=== PATIENT | male | born 1995 | race Asian ===

== ENCOUNTER 2019-03-25 16:38 | Inpatient (IN) ==
--- NOTE | 2019-03-25 17:09 | Emergency Department Note ---
Entered by Giuliana Lock acting as a scribe for History of Present Illness General Chief complaint: Mental Health Evaluation Stated complaint: 302 Time Seen by Provider: 03/25/19 16:44 Source: patient History of Present Illness Provider complaint: Worsening Suicidal Ideation Onset (ago): day(s) 1 Location: head Maximum Pain Intensity: 0 Relieved By: + none Exacerbated By: + other (Stress) Associated symptoms: + denies other symptoms (HI), + loss of appetite and + other (Difficulty sleeping ) The patient is a 23 year old male who presents to the Emergency Room with complaints of worsening suicidal ideation with a plan to jump out of a window that began yesterday. The patient reports that he transferred here in fall and his grandfather had heart surgery which the patient states made him "very frustrated and could not focus." Then during spring his grandfather was diagnosed with stomach cancer and he states he became frustrated again. The patient states that 1 week ago he asked his family for more money to do another semester at [employer] and they said their business was not doing well and they could not provide him with the money he needed. The patient reports that he then decided he could not take the final and talked to his professor who told him "if you do not take it you will fail the class" and the patient walked out and went to [facility]. The patient states that he went back to his professor who told him he had failed and could not take the final. The patient states his symptoms are exacerbated by the stress he has been experiencing and not relieved by anything specific. The patient reports experiencing difficulty sleeping and loss of appetite. The patient denies any homicidal ideation but does express anger towards his professor. The patient denies any history of mental illness or suicidal thoughts. The patient states that he feels calmer now and does not want to kill himself. Home Medications Home Medications Medication Instructions Recorded Confirmed Type No Known Home Medications 03/25/19 03/25/19 History Allergies Allergy/AdvReac Type Severity Reaction Status Date / Time No Known Allergies Allergy Unverified 03/25/19 17:10 Past Med/Surg History Medical History No pertinent past medical history Family History Other Heart disease Stomach cancer Social History Feels Safe at Home: Yes Smoking Status: Current every day smoker Tobacco Type: cigarettes ; Review of Systems See HPI for pertinent positives & negatives. and A total of 10 systems reviewed and were otherwise negative Physical Exam Vital Signs Vital Signs - 24 hr 03/25/19 16:39 03/25/19 21:33 03/25/19 22:24 Temperature 36.5 C Temperature Source Oral Pulse Rate 82 80 Pulse Rate [Apical] 60 Respiratory Rate 16 16 16 Respiratory Depth Normal Blood Pressure 163/93 H Blood Pressure [Left Arm] 93/57 L Blood Pressure Mean 116 Blood Pressure Mean [Left Arm] 69 Pulse Oximetry 98 100 100 Oxygen Delivery Method Room Air Room Air Room Air Sepsis Recent Fever Within 48 Hours No Sepsis New/Unexplained Change in Mental Status No Sepsis Action Taken by Nursing No Action Required GENERAL: alert, well nourished, no distress, non-toxic. Sitting up in bed. EYE EXAM: normal conjunctiva OROPHARYNX: no exudate, no erythema, lips, buccal mucosa, and tongue normal and mucous membranes are moist NECK: supple, no nuchal rigidity, no adenopathy, non-tender LUNGS: Clear to auscultation. Normal chest wall mechanics HEART: no murmurs, S1 normal and S2 normal ABDOMEN: abdomen soft, non-tender, normo-active bowel sounds, no masses, no rebound or guarding. BACK: Back is symmetrical on inspection and there is no deformity, no midline tenderness, no CVA tenderness. SKIN: no rashes and no bruising UPPER EXTREMITIES: upper extremities are grossly normal. LOWER EXTREMITIES: No pitting edema. NEURO EXAM: Normal sensorium, cranial nerves II-XII grossly intact, normal speech, no gross weakness of arms, no gross weakness of legs. PSYCH: Admits to with a plan to jump out of a window. Course Course ED COURSE: Vital signs were reviewed and showed the patient is situationally hypertensive. The patients medical record was reviewed The above diagnostic studies were performed and reviewed. ED treatments and interventions as stated above. 1649: The patient was evaluated in room A08. A complete history and physical examination was performed. 2025: I reevaluated the patient and he does not want to stay. 2044: [employer] issued a warrant for the patient. 2216: Upon reevaluation, the patient is resting comfortably. I discussed my findings with the patient and he understands and agrees with the treatment plan. The patient was admitted to [address] [place] [address]. Based on the patients age, coexisting illnesses, exam and lab findings the decision to treat as an inpatient was made. The patient remained stable while under my care. The patient will be evaluated for further management. Administered Medications Nicotine Polacrilex (Nicorette 2mg) 1 piece MT PRN PRN PRN Reason: Agitation Stop: 04/24/19 20:24 Last Admin: 03/25/19 20:46 Dose: 1 piece Documented by: [id number] Medical Decision Making Differential Diagnosis Differential diagnosis: Etiologies such as psychiatric disorder, infection, hypoglycemia, electrolyte abnormalities, cardiac sources, intracerebral event, toxicological process, neurologic disorder, as well as others were entertained. Medical Records Attestation: I reviewed the patient's medical records. Home Medications Current Medication List: was personally reviewed by me Laboratory Data Attestation: I reviewed the patient's lab results. Result diagrams: 03/25/19 17:13 03/25/19 17:13 Lab Results 03/25/19 03/25/19 03/25/19 Range/Units 17:06 17:06 17:13 WBC 12.37 H (4.8-10.8) K/uL RBC 4.98 (4.7-6.1) M/uL Hgb 16.2 (14.0-18.0) g/dL Hct 46.2 (42-52) % MCV 92.8 (80-100) fL MCH 32.5 (25-34) pg MCHC 35.1 (32-36) g/dL RDW Std Deviation 41.7 (36.4-46.3) fL RDW Coeff of Caty 12.4 (11.5-14.5) % Plt Count 236 (130-400) K/uL MPV 10.4 (7.4-10.4) fL Immature Gran % (Auto) 0.2 % Neut % (Auto) 84.0 % Lymph % (Auto) 10.9 % [place] % (Auto) 4.5 % Eos % (Auto) 0.2 % Baso % (Auto) 0.2 % Immature Gran # (Auto) 0.02 (0.00-0.02) K/uL Neut # (Auto) 10.39 H (1.4-6.5) K/uL Lymph # (Auto) 1.35 (1.2-3.4) K/uL [place] # (Auto) 0.56 (0.11-0.59) K/uL Eos # (Auto) 0.03 (0-0.5) K/uL Baso # (Auto) 0.02 (0-0.2) K/uL Sodium (136-145) mmol/L Potassium (3.5-5.1) mmol/L Chloride (98-107) mmol/L Carbon Dioxide (21-32) mmol/L Anion Gap (3-11) BUN (7-18) mg/dl Creatinine (0.6-1.4) mg/dl Est Cr Clr Drug Dosing ml/min Est GFR ( Amer) Est GFR (Non-Af Amer) BUN/Creatinine Ratio (10-20) Glucose (70-99) mg/dl Calcium (8.5-10.1) mg/dl Total Bilirubin (0.2-1) mg/dl AST (15-37) U/L ALT (12-78) U/L Alkaline Phosphatase (45-117) U/L Total Protein (6.4-8.2) gm/dl Albumin (3.4-5.0) gm/dl Globulin (2.5-4.0) gm/dl Albumin/Globulin Ratio (0.9-2) TSH (0.300-4.500) uIu/ml Urine Color Yellow Urine Appearance Clear (Clear) Urine pH 7.5 (4.5-7.5) Ur Specific [place] 1.007 (1.000-1.030) Urine Protein Negative (Negative) Urine Glucose (UA) Negative (Negative) Urine Ketones Negative (Negative) Urine Blood Negative (Negative) Urine Nitrite Negative (Negative) Urine Bilirubin Negative (Negative) Urine Urobilinogen Negative (Negative) Ur Leukocyte Esterase Negative (Negative) Salicylates (2.8-20) mg/dl Urine Opiates Screen Neg (Neg) Ur Methadone, Qual Neg (Neg) Acetaminophen (10-30) ug/ml Urine Barbiturates Neg (Neg) Ur Phencyclidine (PCP) Neg (Neg) U Amphetamin/Meth Scrn Neg (Neg) MDMA (Ecstasy) Screen Neg (Neg) U Benzodiazepines Scrn Neg (Neg) Ur Cocaine Metabolite Neg (Neg) U Marijuana (THC) Screen Neg (Neg) Ethyl Alcohol mg/dL (0-3) mg/dl 03/25/19 03/25/19 03/25/19 Range/Units 17:13 17:13 17:13 WBC (4.8-10.8) K/uL RBC (4.7-6.1) M/uL Hgb (14.0-18.0) g/dL Hct (42-52) % MCV (80-100) fL MCH (25-34) pg MCHC (32-36) g/dL RDW Std Deviation (36.4-46.3) fL RDW Coeff of Caty (11.5-14.5) % Plt Count (130-400) K/uL MPV (7.4-10.4) fL Immature Gran % (Auto) % Neut % (Auto) % Lymph % (Auto) % [place] % (Auto) % Eos % (Auto) % Baso % (Auto) % Immature Gran # (Auto) (0.00-0.02) K/uL Neut # (Auto) (1.4-6.5) K/uL Lymph # (Auto) (1.2-3.4) K/uL [place] # (Auto) (0.11-0.59) K/uL Eos # (Auto) (0-0.5) K/uL Baso # (Auto) (0-0.2) K/uL Sodium 139 (136-145) mmol/L Potassium 3.8 (3.5-5.1) mmol/L Chloride 109 H (98-107) mmol/L Carbon Dioxide 24 (21-32) mmol/L Anion Gap 6.0 (3-11) BUN 12 (7-18) mg/dl Creatinine 1.17 (0.6-1.4) mg/dl Est Cr Clr Drug Dosing 114.2 ml/min Est GFR ( Amer) 101.2 Est GFR (Non-Af Amer) 87.4 BUN/Creatinine Ratio 10.0 (10-20) Glucose 105 H (70-99) mg/dl Calcium 9.5 (8.5-10.1) mg/dl Total Bilirubin 0.5 (0.2-1) mg/dl AST 17 (15-37) U/L ALT 63 (12-78) U/L Alkaline Phosphatase 121 H (45-117) U/L Total Protein 7.8 (6.4-8.2) gm/dl Albumin 4.3 (3.4-5.0) gm/dl Globulin 3.5 (2.5-4.0) gm/dl Albumin/Globulin Ratio 1.2 (0.9-2) TSH 1.110 (0.300-4.500) uIu/ml Urine Color Urine Appearance (Clear) Urine pH (4.5-7.5) Ur Specific [place] (1.000-1.030) Urine Protein (Negative) Urine Glucose (UA) (Negative) Urine Ketones (Negative) Urine Blood (Negative) Urine Nitrite (Negative) Urine Bilirubin (Negative) Urine Urobilinogen (Negative) Ur Leukocyte Esterase (Negative) Salicylates < 1.7 L (2.8-20) mg/dl Urine Opiates Screen (Neg) Ur Methadone, Qual (Neg) Acetaminophen > 2 L (10-30) ug/ml Urine Barbiturates (Neg) Ur Phencyclidine (PCP) (Neg) U Amphetamin/Meth Scrn (Neg) MDMA (Ecstasy) Screen (Neg) U Benzodiazepines Scrn (Neg) Ur Cocaine Metabolite (Neg) U Marijuana (THC) Screen (Neg) Ethyl Alcohol mg/dL < 3.0 (0-3) mg/dl Blood Pressure Blood Pressure Findings: Elevated blood pressure Blood Pressure Disposition: elevated BP felt to be situational MDM Narrative Patient is a 23-year-old male who presents the ER referred in by caps for suicidal ideations with a plan to jump out of a window. He was stressed out as he was informed that his parents may not be able to pay for tuition and he had trouble thinking and was unable to take a final. He did have some homicidal ideations in regards to his professor per report. Patient notes today is much more calmer and has no complaints at this time. Labs were obtained and showed a mild leukocytosis of 12,000. No significant anemia. BMP along with LFTs bilirubin TSH was unremarkable. UA was negative. Tox was negative. Alcohol was negative. Patient was evaluated by her psychiatric care director rn. Patient declined admission 1 to go home. Following this a 302 petition was performed and was upheld by the [facility]. Patient was admitted on a 302 for suicidal ideations along with some intermittent homicidal ideations. Observation: Indication: Mental Health Evaluation Patient, with heart disease and cancer Family History, was first seen at 1650 hrs and the observation began at 1700 hrs and was necessary in order to determine psychiatric clearance and avoid unnecessary medical admission. Upon re-evaluation, 6 hrs of observation revealed that the patient should be admitted to [address] [place] [address]. Disposition date and time 03/25/2019 at 2216. Impression & Plan Suicidal ideation, Mood disorder Discharge Plan Visit Data Chief Complaint: Mental Health Evaluation Stated Complaint: 302 ED Provider: Reno Vences Discharge Problem: Suicidal ideation, Mood disorder Discharge Instructions Interventions: ED Discharge Assessment Last Done: 03/25/19 22:24 The scribe's documentation has been prepared under my direction and personally reviewed by me in its entirety. I confirm that the note above accurately reflects all work, treatment, procedures, and medical decision making performed by me.
[2019-03-25 17:26] LABS: Appearance Urine Clear (Clear); Bilirubin Urine Negative (Negative); Blood Urine Negative (Negative); Color Urine Yellow; Glucose Urine UA Negative (Negative); Ketones Urine Negative (Negative); Leukocyte Esterase Urine Negative (Negative); Nitrite Urine Negative (Negative); Protein Urine Negative (Negative); Specific Gravity Urine 1.007 (1.000-1.030); Urobilinogen Urine Negative (Negative); pH Urine 7.5 (4.5-7.5)
[2019-03-25 17:32] LABS: Basophils # (auto) 0.02 K/uL (0-0.2); Basophils % (auto) 0.2 %; Eosinophils # (auto) 0.03 K/uL (0-0.5); Eosinophils % (auto) 0.2 %; Hematocrit (blood only) 46.2 % (42-52); Hemoglobin 16.2 g/dL (14.0-18.0); Immature Granulocytes # (auto) 0.02 K/uL (0.00-0.02); Immature Granulocytes % (auto) 0.2 %; Lymphocytes # (auto) 1.35 K/uL (1.2-3.4); Lymphocytes % (auto) 10.9 %; Mean Corpuscular Hemoglobin 32.5 pg (25-34); Mean Corpuscular Hgb Conc 35.1 g/dL (32-36); Mean Corpuscular Volume 92.8 fL (80-100); Mean Platelet Volume 10.4 fL (7.4-10.4); Monocytes # (auto) 0.56 K/uL (0.11-0.59); Monocytes % (auto) 4.5 %; Neutrophils # (auto) 10.39 K/uL (1.4-6.5); Platelet Count 236 K/uL (130-400); RDW Coefficient of Variation 12.4 % (11.5-14.5); RDW Standard Deviation 41.7 fL (36.4-46.3); Red Blood Count 4.98 M/uL (4.7-6.1); White Blood Count 12.37 K/uL (4.8-10.8)
[2019-03-25 17:48] LABS: Amphetamines+Metham, Urine Neg (Neg); Barbiturates, Urine Neg (Neg); Benzodiazepine, Urine Neg (Neg); Cocaine, Urine Neg (Neg); MDMA (Ecstacy), Urine Neg (Neg); Methadone, Urine Neg (Neg); Opiate, Urine Neg (Neg); Phencyclidine, Urine Neg (Neg)
[2019-03-25 17:52] LABS: Albumin Level 4.3 gm/dl (3.4-5.0); Calcium 9.5 mg/dl (8.5-10.1); Creatinine Clr Calc Pharmacy 114.2 ml/min; Est GFR (African American) 101.2; Est GFR (Non-African American) 87.4; Potassium 3.8 mmol/L (3.5-5.1)
[2019-03-25 18:03] LABS: Acetaminophen > 2 ug/ml (10-30); Albumin Globulin Ratio 1.2 (0.9-2); Bilirubin,Total 0.5 mg/dl (0.2-1); Globulin 3.5 gm/dl (2.5-4.0); Thyroid Stimulating Hormone 1.11 uIu/ml (0.300-4.500); Total Protein 7.8 gm/dl (6.4-8.2)
[2019-03-25 18:04] LABS: Salicylate < 1.7 mg/dl (2.8-20)
[2019-03-25] MEDS ORDERED: NICOTINE POLACRILEX 2 MG GUM MT PRN (20:25)
[2019-03-25] MEDS ORDERED: SODIUM CHLORIDE 0.65% NA SOLN 45 ML (OCEAN) PRN (22:53)
[2019-03-25] MEDS ORDERED: MAGNESIUM HYDROXIDE SUSP 30 ML UDC PO PRN (22:53)
[2019-03-25] MEDS ORDERED: ALUMINUM/MAGNESIUM SUSP 30 ML UDC PO PRN (22:53)
[2019-03-25] MEDS ORDERED: BISMUTH SUBSALICYLATE PER ML OMNICELL CHARGE PO PRN (22:53)
[2019-03-25] MEDS ORDERED: ACETAMINOPHEN 325 MG TAB PO PRN (22:53)
--- NOTE | 2019-03-26 08:39 | History & Physical ---
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 He has been struggling academically and is already on academic probation, and will need to coordinate with the school regarding his options. He denies any psychiatric history, and mood and anxiety symptoms occurred over the past 5 days in the context of family, financial, and academic stressors as detailed above. He is thinking of going to [place] to be with parents after discharge and is not sure if he will be returning to [employer]. Inpatient treatment is medically necessary due to the severity of presenting symptoms and risk for suicide if discharged prematurely without medication of risk factors. (1) Suicidal ideation: 03/26 -continue involuntary hospitalization. -Every 15 minute checks for safety. -Process stressors, encourage group attendance and participation, and recommend family meeting with parents. -Patient reported thoughts to harm a professor to [facility] personnel, but has denied any thoughts or intent to harm anyone here, stating he was just frustrated. He would like assistance to contact the University and explore his options to complete the semester. Present on Admission?: Yes (2) Adjustment disorder: 03/26 -patient denies problems with depressive or anxiety symptoms until the past 5 days, when he experienced problems in the context of learning his grandfather has new health problems, his parents are having financial problems and may not be able to continue to pay for his education, and missing finals causing further academic problems. He had suicidal thoughts yesterday, but states they have since resolved, and he is feeling more hopeful that he will be able to find solutions to manage his stressors. I do not believe medications are indicated at this time, but we will continue to monitor for mood and anxiety symptoms and can consider medications if they do not resolve. -Work on healthy coping skills and discharge safety plan. Adjustment disorder type: with mixed anxiety and depressed mood Qualified Code(s): F43.23 - Adjustment disorder with mixed anxiety and depressed mood Present on Admission?: Yes (3) Nicotine abuse: 03/26 -smoking cessation education offered, but patient refused. Continue with motivational interviewing/psychoeducation. -Nicotine replacement with 14 mg patch. -Refer for outpatient follow-up with psychiatrist or PCP. Present on Admission?: Yes Inventory Assets Strengths: Supportive family Risk Factors Assessment Male: Yes : No Do You Have Access To A Gun?: No Health Problems: No Mental Health Diagnoses: Yes Substance Use Disorders: No Previous Attempt: No Family History of Suicide: No Previous Psychiatric Hospitalization: No Hopelessness: Yes Smoker: Yes Protective Factors Assessment : No Responsible for Young Children: No Employed: No Stable Relationships: Yes Supportive Family: Yes Good Rapport with Provider: No Psychiatric History Identifying Data LALO PENALOZA is a 23-year-old M [employer] student from [place] who denies any psychiatric history and was admitted on 03/25/19 22:31 on a 302 involuntary commitment for anxiety, not eating or sleeping, suicidal thoughts to jump out a window and thoughts to harm a professor. Chief Complaint "Where do you want me to start?" History of Present Illness Patient presented to the ER with police after being seen at [facility] for reports of not eating or sleeping, self injury (scratching his hand and banging his head), suicidal thoughts to jump out of a window, and thoughts to harm a professor. He reported feeling out of control. Triggered by missing a final and professor telling him he could not retake it, financial problems (when he asked them to pay for an additional semester, parents said they may not be able to continue to pay for college), and grandfather in [place] with stomach cancer. He reported smoking cigarettes "constantly," and denied any h/o mental health treatment or medications. He reported multiple stressors over the past 2 years since transferring to [employer] in the fall 2016, including his grandfather (who he is very close to) suffering from multiple medical problems, and difficulty in school. In the ER, the recommendation was for inpatient psychiatric treatment, but the patient declined and said he wanted to go home, so was placed on an involuntary commitment. On my assessment, the patient reports he had a final 2 days ago, and the day before that his parents told him they might not be able to pay for his next semester of school "and I was just so frustrated." He talked to his professor and told him he didn't want to take his final because of his mental state, and that he wanted to go see a doctor. He went to [facility] on . and missed his final, and when he returned to his professor's office, he told him that he had missed the final and couldn't take it. He was very upset by this, and felt overwhelmed, although he was told he needed to talk with someone else through the University, but he didn't contact them because he was so frustrated. He states he's missed 3 different finals now, so is having problems in multiple classes, and does not think he will pass. States he was already on academic probation, and had to get at least a 2.0 GPA this semester to stay in school. He returned to [facility] Sat. 03/25 and reported the above symptoms. He reports mood was "fine" until 5 days ago when found out about financial problems and grandfather's health issues. Sleep has been impaired, taking hours to fall asleep, appetite has been decreased but denies weight loss, and concentration is impaired. Denies problems with energy and anhedonia, enjoys time with friends, playing poker and basketball. Denies anxiety prior to this week, but for the past 4 days has been worried about school and his grandfather's health. Denies previous mood episodes, h/o psychosis, daniel, OCD or PTSD. Denies any history of SI or HI. Denies current thoughts of harming anyone else including his professors, states he's like to contact the school about his academic options. He states he feels "stupid" about the suicidal thoughts he had, stating he would not want to hurt his parents and would like help dealing with his stressors, specifically his professor/academics. He is thinking about returning to [place] to be with family and figure out if he'll return to school or not. Past Psychiatric History Previous Psych History: Denies Current Psychiatric Diagnosis: None Outpatient Services: None Previous Psych Admissions: Denies Do You Have Access To A Gun?: No History of Previous Suicide Attempt: No Past Medication Trials: Denies Allergies Allergy/AdvReac Type Severity Reaction Status Date / Time No Known Allergies Allergy Unverified 03/25/19 17:10 Home Medications Home Medications Medication Instructions Recorded Confirmed Type No Known Home Medications 03/25/19 03/25/19 History Family History Family History of: None Alcohol History Hx of Alcohol Use Over the Past 12 Months: No AUDIT Total Score: 0 Smoking Use Have You Smoked or Used Tobacco Products in the Last 30 Days: Yes tobacco type: cigarettes Smoking Status: Current every day smoker Smoking packs per day: 0.5 Substance History Hx of Prescription Med Misuse Over the Past 12 Months: No Hx of Over the Counter Med Misuse Over the Past 12 Months: No Hx of Inhalent Misuse Over the Past 12 Months: No Hx of Organic Substance Use Over the Past 12 Months: No Hx of Illegal Substances/Street Drug Use Over Past 12 Months: No Problems as a Result of Past Substance Use: None Identified Personal History Living Arrangements: Apartment (with roommates off campus) Living Arrangements Comments: [place] to attend [employer]. From [facility], parents still there. Only child. 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 Started school at the [employer], was going to play basketball, "but it was too hard," so studied abroad in [place], and then transferred to [employer], as one of his HS teammates goes here. Majoring in liberal arts, but wants to change to math. On academic probation, has to get a 2.0 this semester to stay in school. Employment Status: Student Marital Status: Single Number Of Children: 0 Beliefs That Will Affect Care: None Current Legal Problems: No Hx Traumatic Life Events: No Patient History Medical History (Updated 03/26/19 @ 11:08 by Lizet Roibson MD) Adjustment disorder Nicotine abuse No pertinent past medical history Family History Other Heart disease Stomach cancer Social History Communication Ability: Effective Food Service Employee Required: No Beliefs That Will Affect Care: None Feels Safe at Home: Yes Smoking Status: Current every day smoker Tobacco Type: cigarettes ; Review of Systems Review of Systems: All systems reviewed & are unremarkable except as noted in HPI & below Physical Exam Psychiatric: Orientation: alert, oriented x 3 and cooperative Apperance: appropriately dressed, appropriately groomed and appeared stated age Eye Contact: good eye contact Motor Behavior: steady gait and station and no abnormal motor movements Speech: normal rate/rhythm/volume of speech Affect: + anxious affect and mood congruent with affect Mood: + depressed mood and + anxious mood Thought Process: goal directed thought process Thought Content: + hopelessness and + guilt Suicidal Thoughts: denies suicidal thoughts Homicidal Thoughts: denies homicidal thoughts Hallucinations: no auditory hallucinations and no visual hallucinations Cognition: recent memory grossly intact, attention grossly intact and language grossly intact Estimated Intelligence: consistent with education level Insight: + fair insight Judgement: + fair judgement Vital Signs (Past 24 Hours): Last Vital Signs Temp 36.3 C L 03/26/19 06:37 Pulse 56 L 03/26/19 06:40 Resp 16 03/26/19 06:37 BP 119/83 03/26/19 06:40 Pulse Ox 100 03/25/19 22:24 Exam Statement: A physical exam was performed in the ER prior to admission to the unit by Dr. Reno Vences. I accept that physical as correct/medical clearance for the inpatient physical exam. Results & Data Laboratory Results Laboratory Results - last 24 hr 03/25/19 03/25/19 03/25/19 17:06 17:06 17:13 WBC 12.37 H RBC 4.98 Hgb 16.2 Hct 46.2 MCV 92.8 MCH 32.5 MCHC 35.1 RDW Std Deviation 41.7 RDW Coeff of Caty 12.4 Plt Count 236 MPV 10.4 Immature Gran % (Auto) 0.2 Neut % (Auto) 84.0 Lymph % (Auto) 10.9 [place] % (Auto) 4.5 Eos % (Auto) 0.2 Baso % (Auto) 0.2 Immature Gran # (Auto) 0.02 Neut # (Auto) 10.39 H Lymph # (Auto) 1.35 [place] # (Auto) 0.56 Eos # (Auto) 0.03 Baso # (Auto) 0.02 Sodium Potassium Chloride Carbon Dioxide Anion Gap BUN Creatinine Est Cr Clr Drug Dosing Est GFR ( Amer) Est GFR (Non-Af Amer) BUN/Creatinine Ratio Glucose Calcium Total Bilirubin AST ALT Alkaline Phosphatase Total Protein Albumin Globulin Albumin/Globulin Ratio TSH Urine Color Yellow Urine Appearance Clear Urine pH 7.5 Ur Specific Wray 1.007 Urine Protein Negative Urine Glucose (UA) Negative Urine Ketones Negative Urine Blood Negative Urine Nitrite Negative Urine Bilirubin Negative Urine Urobilinogen Negative Ur Leukocyte Esterase Negative Salicylates Urine Opiates Screen Neg Ur Methadone, Qual Neg Acetaminophen Urine Barbiturates Neg Ur Phencyclidine (PCP) Neg U Amphetamin/Meth Scrn Neg MDMA (Ecstasy) Screen Neg U Benzodiazepines Scrn Neg Ur Cocaine Metabolite Neg U Marijuana (THC) Screen Neg Ethyl Alcohol mg/dL 03/25/19 03/25/19 03/25/19 17:13 17:13 17:13 WBC RBC Hgb Hct MCV MCH MCHC RDW Std Deviation RDW Coeff of Caty Plt Count MPV Immature Gran % (Auto) Neut % (Auto) Lymph % (Auto) [place] % (Auto) Eos % (Auto) Baso % (Auto) Immature Gran # (Auto) Neut # (Auto) Lymph # (Auto) [place] # (Auto) Eos # (Auto) Baso # (Auto) Sodium 139 Potassium 3.8 Chloride 109 H Carbon Dioxide 24 Anion Gap 6.0 BUN 12 Creatinine 1.17 Est Cr Clr Drug Dosing 114.2 Est GFR ( Amer) 101.2 Est GFR (Non-Af Amer) 87.4 BUN/Creatinine Ratio 10.0 Glucose 105 H Calcium 9.5 Total Bilirubin 0.5 AST 17 ALT 63 Alkaline Phosphatase 121 H Total Protein 7.8 Albumin 4.3 Globulin 3.5 Albumin/Globulin Ratio 1.2 TSH 1.110 Urine Color Urine Appearance Urine pH Ur Specific [place]ray Urine Protein Urine Glucose (UA) Urine Ketones Urine Blood Urine Nitrite Urine Bilirubin Urine Urobilinogen Ur Leukocyte Esterase Salicylates < 1.7 L Urine Opiates Screen Ur Methadone, Qual Acetaminophen > 2 L Urine Barbiturates Ur Phencyclidine (PCP) U Amphetamin/Meth Scrn MDMA (Ecstasy) Screen U Benzodiazepines Scrn Ur Cocaine Metabolite U Marijuana (THC) Screen Ethyl Alcohol mg/dL < 3.0 Current Inpatient Medications Current Inpatient Medications: Current Inpatient Medications Acetaminophen (Tylenol) 650 mg PO Q4H PRN PRN Reason: Headache or Minor Fever Stop: 04/24/19 22:52 Al Hydrox/Mg Hydrox/Simethicone (Maalox) 30 ml PO Q4H PRN PRN Reason: GI Upset Stop: 04/24/19 22:52 Bismuth Subsalicylate (Kaopectate) 15 ml PO PRN PRN PRN Reason: Loose Stool Stop: 04/24/19 22:52 Hydroxyzine HCl (Vistaril) 50 mg PO HSZ PRN PRN Reason: Insomnia Stop: 04/24/19 22:52 Hydroxyzine HCl (Vistaril) 25 mg PO Q4H PRN PRN Reason: Anxiety Stop: 04/24/19 22:52 Magnesium Hydroxide (Milk Of Magnesia) 30 ml PO DAILY PRN PRN Reason: Constipation Stop: 04/24/19 22:52 Miscellaneous (Remove Nicoderm Patch) 1 ea N/A DAILY@[id number] [facility] Stop: 04/25/19 08:58 Nicotine (Nicoderm Cq) 14 mg TD QAM [facility] Stop: 04/25/19 08:59 Sodium Chloride ([place] Nasal) 1 - 2 sprays NA PRN PRN PRN Reason: Nasal Dryness/Congestion Stop: 04/24/19 22:52
[2019-03-26] MEDS: NICOTINE 14 MG/24 HR PATCH TD SCH (10:01)
[2019-03-27] MEDS: NICOTINE 14 MG/24 HR PATCH TD SCH (09:33)
--- NOTE | 2019-03-27 15:58 | Discharge Summary ---
Date of Service March 27, 2019 History of Present Illness Patient presented to the ER with police after being seen at [facility] for reports of not eating or sleeping, self injury (scratching his hand and banging his head), suicidal thoughts to jump out of a window, and thoughts to harm a professor. He reported feeling out of control. Triggered by missing a final and professor telling him he could not retake it, financial problems (when he asked them to pay for an additional semester, parents said they may not be able to continue to pay for college), and grandfather in [place] with stomach cancer. He reported smoking cigarettes "constantly," and denied any h/o mental health treatment or medications. He reported multiple stressors over the past 2 years since transferring to [employer] in the fall 2016, including his grandfather (who he is very close to) suffering from multiple medical problems, and difficulty in school. In the ER, the recommendation was for inpatient psychiatric treatment, but the patient declined and said he wanted to go home, so was placed on an involuntary commitment. On my assessment, the patient reports he had a final 2 days ago, and the day before that his parents told him they might not be able to pay for his next semester of school "and I was just so frustrated." He talked to his professor and told him he didn't want to take his final because of his mental state, and that he wanted to go see a doctor. He went to [facility] on . and missed his final, and when he returned to his professor's office, he told him that he had missed the final and couldn't take it. He was very upset by this, and felt overwhelmed, although he was told he needed to talk with someone else through the University, but he didn't contact them because he was so frustrated. He states he's missed 3 different finals now, so is having problems in multiple classes, and does not think he will pass. States he was already on academic probation, and had to get at least a 2.0 GPA this semester to stay in school. He returned to [facility] 03/25 and reported the above symptoms. He reports mood was "fine" until 5 days ago when found out about financial problems and grandfather's health issues. Sleep has been impaired, taking hours to fall asleep, appetite has been decreased but denies weight loss, and concentration is impaired. Denies problems with energy and anhedonia, enjoys time with friends, playing poker and basketball. Denies anxiety prior to this week, but for the past 4 days has been worried about school and his grandfather's health. Denies previous mood episodes, h/o psychosis, daniel, OCD or PTSD. Denies any history of SI or HI. Denies current thoughts of harming anyone else including his professors, states he's like to contact the school about his academic options. He states he feels "stupid" about the suicidal thoughts he had, stating he would not want to hurt his parents and would like help dealing with his stressors, specifically his professor/academics. He is thinking about returning to [place] to be with family and figure out if he'll return to school or not. Physical Exam Psychiatric Orientation: alert, oriented x 3 and cooperative Apperance: appropriately dressed, appropriately groomed and appeared stated age Eye Contact: good eye contact Motor Behavior: steady gait and station Speech: normal rate/rhythm/volume of speech Affect: euthymic affect "A lot better. I've [calmed down]." Thought Process: goal directed thought process, linear/logical thought process and clear/coherent thought process Thought Content: reality based without delusions Suicidal Thoughts: denies suicidal thoughts Homicidal Thoughts: denies homicidal thoughts Hallucinations: no auditory hallucinations Cognition: recent memory grossly intact, remote memory grossly intact, attention grossly intact and language grossly intact Estimated Intelligence: + above average estimated intelligence Insight: good insight Judgement: good judgement Vital Signs (Past 24 Hours) Last Vital Signs Temp 36.4 C L 03/27/19 11:43 Pulse 69 03/27/19 11:43 Resp 16 03/27/19 11:43 BP 118/83 03/27/19 11:43 Pulse Ox 100 03/27/19 11:43 Principal Diagnosis Adjustment Disorder with Mixed Features Psychiatric Data During the brief course of hospitalization the patient was offered various modalities of psychiatric treatment and education. These included individual, group and activity therapies. We discussed medication treatment for depression and anxiety, but the patient assured us that he does not feel that, at baseline, he is particularly depressed. Instead, he describes a confluence of psychosocial stressors that culminated in his interaction with his linear algebra professor. Once the patient was able to process this, his affect brightened and his anxiety largely dissipated. He also notes that he was able to speak with his family in [place] and they were more accepting of his anxious distress than he had anticipated. The patient consistently denied any suicidal ideation. He also reported that he held no ill will against the linear algebra professor and says that he understands now that the linear algebra professor was "probably just following a procedure that I did not know about." Patient's affect was fairly bright, although slightly anxious. He is future oriented, talks about his plans for the upcoming semester, and says that he will attempt to pursue an accommodation for his examination through the office of student disabilities, but knows now that even if he is not able to secure an accommodation he will be able to matriculate in the next semester and, if necessary, retake his linear algebra course. Day of Discharge Assessment During the discharge assessment the patient was pleasant, cooperative, and forthcoming. He was appropriately dressed and groomed. His speech was fluid, spontaneous, and delivered at a normal rate and volume. Although Vietnamese is not his first language, he was able to express himself articulately. The patient reports that his mood is good" and "much better." His affect is fairly bright, but somewhat anxious at times when discussing his grandfather's illness (stomach cancer) and his family's financial difficulties. The patient's thought processes demonstrated tight associations and were clearly goal oriented. The patient's thought content was devoid of any delusional material. And he focused primarily on reviewing the circumstances that had led to the admission as well as his various psychosocial stressors. There is no evidence of any perceptual disturbances. The patient has consistently reported that he is not actually suicidal and notes that if he did mention harming himself at some point those references were not accompanied with any actual suicidal plan or intent. He also notes that he recalled searching for language that would allow him to fully express the level of his distress, and thinks that he may have used a reference to suicide as a source of emphasis. He spontaneously reports that he has had no thoughts of animosity towards his linear algebra professor, as reports that he has had no thoughts of causing physical harm to the person or property of others. The patient's judgment and insight at this point appears to be good. The treatment team and I feel that the patient's condition is such that he could now be safely and appropriately continue his treatment on an outpatient basis. Transition of Care Transition Of Care Record: was reviewed with the patient Advance Directives Advance Directives Information Provided: Yes Advance Directives: No Mental Health Advance Directive: No Advance Directives on File: No Living Will: No Power of Reed Dipper: No Advance Directives Reason:: Declines as Mental Health Visit. Risk Factors Assessment Male: Yes : No Do You Have Access To A Gun?: No Health Problems: No Mental Health Diagnoses: Yes Substance Use Disorders: No Previous Attempt: No Family History of Suicide: No Previous Psychiatric Hospitalization: No Hopelessness: Yes Smoker: Yes Protective Factors Assessment Hinduism Beliefs: No : No Responsible for Young Children: No Employed: No Stable Relationships: Yes Supportive Family: Yes Good Rapport with Provider: No Absence of Any Risk Factors Above: No Tobacco Cessation at Discharge Tobacco Cessation Medication Prescribed at Discharge: Offered & Pt Refused (Patient reports that although he smokes he has not experienced any nicotine cravings and is concerned that the use of nicotine cessation products might actually cause habituation in his case.) Total Time Total Time Spent: Greater Than 30 Minutes Total Time Includes: Examination of the patient, Discharge Planning, Medication Reconciliation and Communication with other providers Discharge Data Lab Results 03/25/19 03/25/19 03/25/19 17:06 17:06 17:13 WBC 12.37 H RBC 4.98 Hgb 16.2 Hct 46.2 MCV 92.8 MCH 32.5 MCHC 35.1 RDW Std Deviation 41.7 RDW Coeff of Caty 12.4 Plt Count 236 MPV 10.4 Immature Gran % (Auto) 0.2 Neut % (Auto) 84.0 Lymph % (Auto) 10.9 [place] % (Auto) 4.5 Eos % (Auto) 0.2 Baso % (Auto) 0.2 Immature Gran # (Auto) 0.02 Neut # (Auto) 10.39 H Lymph # (Auto) 1.35 [place] # (Auto) 0.56 Eos # (Auto) 0.03 Baso # (Auto) 0.02 Sodium Potassium Chloride Carbon Dioxide Anion Gap BUN Creatinine Est Cr Clr Drug Dosing Est GFR ( Amer) Est GFR (Non-Af Amer) BUN/Creatinine Ratio Glucose Calcium Total Bilirubin AST ALT Alkaline Phosphatase Total Protein Albumin Globulin Albumin/Globulin Ratio TSH Urine Color Yellow Urine Appearance Clear Urine pH 7.5 Ur Specific [place] 1.007 Urine Protein Negative Urine Glucose (UA) Negative Urine Ketones Negative Urine Blood Negative Urine Nitrite Negative Urine Bilirubin Negative Urine Urobilinogen Negative Ur Leukocyte Esterase Negative Salicylates Urine Opiates Screen Neg Ur Methadone, Qual Neg Acetaminophen Urine Barbiturates Neg Ur Phencyclidine (PCP) Neg U Amphetamin/Meth Scrn Neg MDMA (Ecstasy) Screen Neg U Benzodiazepines Scrn Neg Ur Cocaine Metabolite Neg U Marijuana (THC) Screen Neg Ethyl Alcohol mg/dL 03/25/19 03/25/19 03/25/19 17:13 17:13 17:13 WBC RBC Hgb Hct MCV MCH MCHC RDW Std Deviation RDW Coeff of Caty Plt Count MPV Immature Gran % (Auto) Neut % (Auto) Lymph % (Auto) [place] % (Auto) Eos % (Auto) Baso % (Auto) Immature Gran # (Auto) Neut # (Auto) Lymph # (Auto) [place] # (Auto) Eos # (Auto) Baso # (Auto) Sodium 139 Potassium 3.8 Chloride 109 H Carbon Dioxide 24 Anion Gap 6.0 BUN 12 Creatinine 1.17 Est Cr Clr Drug Dosing 114.2 Est GFR ( Amer) 101.2 Est GFR (Non-Af Amer) 87.4 BUN/Creatinine Ratio 10.0 Glucose 105 H Calcium 9.5 Total Bilirubin 0.5 AST 17 ALT 63 Alkaline Phosphatase 121 H Total Protein 7.8 Albumin 4.3 Globulin 3.5 Albumin/Globulin Ratio 1.2 TSH 1.110 Urine Color Urine Appearance Urine pH Ur Specific [place] Urine Protein Urine Glucose (UA) Urine Ketones Urine Blood Urine Nitrite Urine Bilirubin Urine Urobilinogen Ur Leukocyte Esterase Salicylates < 1.7 L Urine Opiates Screen Ur Methadone, Qual Acetaminophen > 2 L Urine Barbiturates Ur Phencyclidine (PCP) U Amphetamin/Meth Scrn MDMA (Ecstasy) Screen U Benzodiazepines Scrn Ur Cocaine Metabolite U Marijuana (THC) Screen Ethyl Alcohol mg/dL < 3.0 Hospital Course (1) Suicidal ideation: 03/26 -continue involuntary hospitalization. -Every 15 minute checks for safety. -Process stressors, encourage group attendance and participation, and recommend family meeting with parents. -Patient reported thoughts to harm a professor to [facility] personnel, but has denied any thoughts or intent to harm anyone here, stating he was just frustrated. He would like assistance to contact the University and explore his options to complete the semester. 03/27 -Today, the patient continues to assure us that he never had any actual suicidal ideation. Instead, he says that he believes that he may have made certain statements as what he thought was an expedited way of expressing his distress regarding certain psychosocial stressors and, in particular, his distress regarding what he believed was the fact that he was going to fail a course because he missed the final examination. -The patient notes that he has no history of suicide attempts and has never had any actual suicidal plan or intent. He was able to talk about his various psychosocial stressors (see below) and acknowledges that he may have overreacted to the situation or may have misunderstood what he was being told. -Upon learning how to go about contacting the office of student disabilities at [facility] in order to petition to be allowed to take his final exam (missed because of his psychiatric outpatient appointment, followed fairly quickly by admission to the hospital) he said that he felt much more calm and reassured. He also said that he was able to determine that even if he fails the course in question (linear algebra) he will still qualify academically to return for the springester and will simply repeat the course if he needs to. (2) Adjustment disorder: 03/26 -patient denies problems with depressive or anxiety symptoms until the past 5 days, when he experienced problems in the context of learning his grandfather has new health problems, his parents are having financial problems and may not be able to continue to pay for his education, and missing finals causing further academic problems. He had suicidal thoughts yesterday, but states they have since resolved, and he is feeling more hopeful that he will be able to find solutions to manage his stressors. I do not believe medications are indicated at this time, but we will continue to monitor for mood and anxiety symptoms and can consider medications if they do not resolve. -Work on healthy coping skills and discharge safety plan. 03/27 -During the brief stay the patient was able to process a number of psychosocial stressors. 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 Also, the patient's beloved grandfather is ill. He acknowledges that he is having difficulty adjusting to these recent stressors, and notes that he only recently began to experience anxious distress. -As best we can tell, the patient may have misunderstood his linear bernardojose professor. Apparently, the karen professor is not a [place] speaker. The patient recalls that when the professor told him that he could retake his examination, but that he would have to go through the office of student disabilities, the patient thought that the professor meant that he would have to be declared disabled in some legal fashion in order to have an accommodation associated with his appointment with [facility] that corresponded with his exam time. Once this was explained to the patient in much more detail he was able to understand that he had misunderstood. (3) Nicotine abuse: 03/26 -smoking cessation education offered, but patient refused. Continue with motivational interviewing/psychoeducation. -Nicotine replacement with 14 mg patch. -Refer for outpatient follow-up with psychiatrist or PCP. Mental Health & Subst Abuse Tx Therapist Name of Therapist: [facility] Follow up as needed. Therapist's Therapy Appointment Comment: [address] [facility] [address], [place] [address] Tow Mate Name of Tow Mate: [facility] and Advocacy: Sobeida Phone Number for Tow Mate: [phone] Case Management Appointment Comment: [address] [facility]. Follow up once they reopen in two weeks. Post Discharge Appointments Primary Care Physician Name Of Family Doctor: [facility] Smoking Cessation Counseling Tobacco Cessation Medication Prescribed at Discharge: Offered & Pt Refused (Patient reports that although he smokes he has not experienced any nicotine cravings and is concerned that the use of nicotine cessation products might actually cause habituation in his case.) Discharge Plan Discharge Items Patient Disposition: Home - Self-Care Reason For Visit: SUICIDAL IDEATION Discharge Diagnosis: Adjustment Disorder with Mixed Features Activity: Resume your previous activity Non-emergency contact: Primary Care Provider and Therapist Call non-emergency contact if: you have any medication questions and your symptoms worsen Follow-up/Referrals: [facility] [Primary Care Provider] - Diet: Regular Addtl Attending Provider Instructions: Use your stress-management skills. Let [facility] or your roommate know if your suicidal thoughts return. Pending Studies at Discharge: No Stand-Alone Forms: My [facility] ustyme, Smoking Cessation, Suicide Prevention Resources Medications and DC Order Prescriptions: No Action No Known Home Medications RF: 0 Discharge Orders: Discharge Order (Routine); Ordered 03/27/19 Ordered By: Dhruv Munoz Admission Data Admit Date/Time: 03/25/19 22:31 Attending Provider: Lizet Robison Admit Provider: Asad Todd Primary Care Provider: [facility] Other Interventions: Discharge Summary Assessment (RN) Last Done: 03/27/19 11:43 DC Date/Time DO NOT enter until pt leaves facility: 03/27/19 12:05 C[place] [address] D/C day mgmt > 30 min Patient Type Established History Expanded Problem Focused Exam Expanded Problem Focused Medical Decision Making Moderate Complexity Diagnoses Suicidal ideation R45.851 Adjustment disorder F43.23 Adjustment disorder type: with mixed anxiety and depressed mood Nicotine abuse Z72.0 Time Spent (min) 60
== END 2019-03-27 12:05 | disposition home or self-care (01) | DRG 882 ==
LOC: ED 16:38 → 3S 22:24